=== PATIENT | female | born 1965 | race Caucasian/White ===

== ENCOUNTER 2018-12-02 17:35 | Observation (INO) | payer BC ==
[~2018-12-02] VITALS: Ht 170.2 cm; Wt 92.9 kg
[~2018-12-02 17:35] MED LIST: ALBU90OI61 INH; CIPR500 PO; FLUO10 PO; Gabapentin600 MG PO; HYDR1TAB94 PO; IBUP800 PO; LORA.5 PO; NAPR500 PO; Norco 5-325 Ta1 EACH PO; OMEP40CA12 PO; ONDA4 PO; OXYACE5T PO; Omeprazole20 M1 PO; Prozac20 MG PO; Robaxin-750750 MG PO; Tessalon200 MG PO; Ultram50 MG PO; Zofran4 MG PO
[2018-12-02 18:03] LABS: BASOPHILS ABSOLUTE AUTO 0.06 K/mm3 (0.00-0.23); BASOPHILS PERCENT AUTO 1 % (0-2); EOSINOPHILS ABSOLUTE AUTO 0.12 K/mm3 (0.00-0.68); EOSINOPHILS PERCENT AUTO 2 % (0-6); Hematocrit 38.6 % (33.0-51.0); Hemoglobin 12.5 g/dL (11.5-16.0); IMMATURE GRAN ABSOLUTE AUTO 0.01 K/mm3 (0.00-0.10); IMMATURE GRAN PERCENT AUTO 0 % (0-1); LYMPHOCYTES ABSOLUTE AUTO 3.33 K/mm3 (0.84-5.20); LYMPHOCYTES PERCENT AUTO 48 % (21-46); MONOCYTES ABSOLUTE AUTO 0.48 K/mm3 (0.16-1.47); MONOCYTES PERCENT AUTO 7 % (4-13); Mean Corpuscular HGB 30.1 pg (26.0-34.0); Mean Corpuscular HGB Conc 32.4 g/dL (31.5-36.5); Mean Corpuscular Volume 93 fL (80-100); Mean Platelet Volume 8.8 fL (9.1-12.4); NEUTROPHILS ABSOLUTE AUTO 2.97 K/mm3 (1.96-9.15); NEUTROPHILS PERCENT AUTO 43 % (41-73); Platelet Count 301 K/mm3 (150-400); RDW Coefficient Variation 12.1 % (11.7-14.2); RDW Standard Deviation 41.3 fL (35.1-46.3); Red Blood Cell Count 4.15 M/mm3 (3.80-5.20); White Blood Cell Count 6.97 K/mm3 (4.00-11.30)
[2018-12-02 18:19] LABS: International Normalized Ratio 0.96; Prothrombin Time Results 10.2 Sec (9.7-11.5)
[2018-12-02 18:34] LABS: Alanine Aminotransfer (ALT/SGP 56 U/L (12-78); Albumin, Blood 3.6 g/dL (3.4-5.0); Albumin/Globulin Ratio 0.9 (0.8-1.8); Alk Phos 50 U/L (50-136); Anion Gap 11 mmol/L (6-16); Aspartate Aminotrans (AST/SGOT 92 U/L (12-37); Bilirubin, Total 0.7 mg/dL (0.1-1.0); Blood Urea Nitrogen 11 mg/dL (8-24); Bun/Creatinine Ratio 16.5 (12.0-20.0); CO2, Blood 23 mmol/L (21-32); Calcium, Blood 8.5 mg/dL (8.5-10.1); Chloride, Blood 108 mmol/L (98-108); Creatinine, Blood 0.67 mg/dL (0.40-1.00); Globulin, Blood 3.8 g/dL (2.2-4.0); Glomerular Filtration Rate >60 (60-); Glucose, Blood 128 mg/dL (70-99); Sodium, Blood 142 mmol/L (136-145); Total Protein, Blood 7.4 g/dL (6.4-8.2); Troponin I <0.015 ng/mL (0.000-0.040)
[2018-12-02 18:37] LABS: Source, Urine Clean Catch
[2018-12-02 18:45] LABS: Appearance, Urine Hazy (Clear); Bilirubin, Urine Neg (Neg); Blood, Urine 1+ (Neg); Color, Urine Yellow (P-Yellow); Glucose Qualitative, Urine 1+ (Neg); Ketones, Urine 1+ (Neg); Leukocyte Esterase, Urine Neg (Neg); Nitrite, Urine Neg (Neg); Protein, Urine 4+ (Neg); Urobilinogen, Urine 1+ (Normal); pH, Urine 6.5 (5.0-8.0)
[2018-12-02 19:18] LABS: Amorphous Light (0-Heavy); Bacteria Many /hpf; Squamous Epithelial Cells Mod /hpf (Few); Yeast/Fungi Urine Few /hpf
[2018-12-02 19:31] LABS: U Amphetamine Screen Not Detected; U Barbituate Screen Not Detected; U Benzodiazapine Screen Not Detected; U Buprenorphine Screen Not Detected; U Cannabinoids Screen Not Detected; U Cocaine Screen Not Detected; U Methadone Screen Not Detected; U Methamphetamine Screen Not Detected; U Opiates Screen Not Detected; U Oxycodone Screen Not Detected; U Phencyclidine Screen Not Detected; U Propoxyphene Screen Not Detected
[2018-12-02] MEDS ORDERED: Omeprazole20 M1 PO (20:00)
[2018-12-02 20:17] LABS: Influenza A Negative (NEGATIVE); Influenza B Negative (NEGATIVE)
[2018-12-02 22:23] LABS: Troponin I 0.068 ng/mL (0.000-0.040)
[2018-12-03 06:00] LABS: Hematocrit 36.4 % (33.0-51.0); Hemoglobin 11.9 g/dL (11.5-16.0); Mean Corpuscular HGB 30.4 pg (26.0-34.0); Mean Corpuscular HGB Conc 32.7 g/dL (31.5-36.5); Mean Corpuscular Volume 93 fL (80-100); Mean Platelet Volume 8.9 fL (9.1-12.4); Platelet Count 265 K/mm3 (150-400); RDW Coefficient Variation 12.2 % (11.7-14.2); RDW Standard Deviation 41.6 fL (35.1-46.3); Red Blood Cell Count 3.91 M/mm3 (3.80-5.20); White Blood Cell Count 7.86 K/mm3 (4.00-11.30)
--- NOTE | 2018-12-03 06:16 | NUR ---
SHIFT SUMMARY PT ALERT AND ORIENTED. PT HAS SOME CONFUSION ABOUT SYNCOPAL EPISODE. VS STABLE. PT DENIES ANY CP OR DIZZINESS. NS INF PER ORDERS. PT ABLE TO AMBULATE TO BATHROOM NEEDED WITH SBA. NO ACUTE CHANGES SINCE ADMISSION. WILL CONTINUE TO MONITOR AND REPORT TO ONCOMING RN. CALL LIGHT IN REACH.
[2018-12-03 06:24] LABS: Alanine Aminotransfer (ALT/SGP 44 U/L (12-78); Albumin, Blood 3.4 g/dL (3.4-5.0); Albumin/Globulin Ratio 0.9 (0.8-1.8); Alk Phos 47 U/L (50-136); Anion Gap 5 mmol/L (6-16); Aspartate Aminotrans (AST/SGOT 40 U/L (12-37); Bilirubin, Total 0.4 mg/dL (0.1-1.0); Blood Urea Nitrogen 9 mg/dL (8-24); Bun/Creatinine Ratio 11.6 (12.0-20.0); CO2, Blood 27 mmol/L (21-32); Calcium, Blood 8.8 mg/dL (8.5-10.1); Chloride, Blood 109 mmol/L (98-108); Creatinine, Blood 0.77 mg/dL (0.40-1.00); Globulin, Blood 3.6 g/dL (2.2-4.0); Glomerular Filtration Rate >60 (60-); Glucose, Blood 99 mg/dL (70-99); Potassium, Blood 4.2 mmol/L (3.5-5.5); Sodium, Blood 141 mmol/L (136-145)
[2018-12-03 06:28] LABS: Troponin I 0.03 ng/mL (0.000-0.040)
--- NOTE | 2018-12-03 11:05 | NUR ---
Echocardiogram completed.
[2018-12-03 13:08] LABS: Adenovirus Not Detected (NOT DETECT); Coronavirus 229E Not Detected (NOT DETECT); Coronavirus HKU1 Not Detected (NOT DETECT); Coronavirus NL63 Not Detected (NOT DETECT); Coronavirus OC43 Not Detected (NOT DETECT); Human Metapneumovirus Not Detected (NOT DETECT); Human Rhinovirus/Enterovirus Not Detected (NOT DETECT); Influenza A Not Detected (NOT DETECT); Influenza A/2009-H1 Not Detected (NOT DETECT); Influenza A/H1 Not Detected (NOT DETECT); Influenza A/H3 Not Detected (NOT DETECT)
[2018-12-03 13:09] LABS: Bordetella pertussis Not Detected (NOT DETECT); Chlamydophila pneumoniae Not Detected (NOT DETECT); Influenza B Not Detected (NOT DETECT); Mycoplasma pneumoniae Not Detected (NOT DETECT); Parainfluenza Virus 1 Not Detected (NOT DETECT); Parainfluenza Virus 2 Not Detected (NOT DETECT); Parainfluenza Virus 3 Not Detected (NOT DETECT); Parainfluenza Virus 4 Not Detected (NOT DETECT); Respiratory Syncytial Virus Not Detected (NOT DETECT)
[2018-12-04 04:28] LABS: Albumin, Blood 3.3 g/dL (3.4-5.0); Anion Gap 5 mmol/L (6-16); Blood Urea Nitrogen 8 mg/dL (8-24); Bun/Creatinine Ratio 9.6 (12.0-20.0); CO2, Blood 28 mmol/L (21-32); Calcium, Blood 8.9 mg/dL (8.5-10.1); Chloride, Blood 109 mmol/L (98-108); Creatinine, Blood 0.83 mg/dL (0.40-1.00); Glomerular Filtration Rate >60 (60-); Glucose, Blood 100 mg/dL (70-99); Phosphorus, Blood 3.4 mg/dL (2.5-4.9); Potassium, Blood 4.1 mmol/L (3.5-5.5); Sodium, Blood 142 mmol/L (136-145)
--- NOTE | 2018-12-04 06:25 | NUR ---
DIRECTOR OF EMERGENCY NURSING SUMMARY NO ACUTE CHANGES THIS SHIFT. PT AAOX4 AND COOPERATIVE WITH CARE. STANDBY ASSIST TO BATHROOM DUE TO PT BEING ADMITTED DUE TO SYNCOPAL EPISODE. HOWEVER, PT HAS REPORTED TO DIZZINESS OR PRE SYNCOPAL SYMPTOMS THIS SHIFT. PT WAS UP FOR A SHOWER AT START OF SHIFT. DENIES PAIN, N/V, SOB. VSS, WILL CONTINUE TO MONITOR.
== END 2018-12-04 11:34 | disposition home or self-care (01) ==
LOC: ER 17:35 → PCU 17:36
PROVIDERS: Emergency Medicine; Internal Medicine; ADMIT Internal Medicine
DX: I95.9 Hypotension, unspecified (principal); G93.41 Metabolic encephalopathy; I44.7 Left bundle-branch block, unspecified; E87.6 Hypokalemia; F32.9 Major depressive disorder, single episode, unspecified; K21.9 Gastro-esophageal reflux disease without esophagitis; Z87.442 Personal history of urinary calculi; Z79.899 Other long term (current) drug therapy; Z88.6 Allergy status to analgesic agent; Z88.0 Allergy status to penicillin
CPT/HCPCS: 36415; 70450; 71260; 80053; 80069; 81001; 82140; 82550; 83735; 83880; 84484; 85025; 85027; 85610; 85730; 87086; 87486; 87581; 87633; 87798; 87804; 93005; 93010; 93306; 93880; 96361; 96365; 96366; 96372; 96374; 96374-59; 96375; 96375-59; 99285-25; G0378; J1650; J2001; J2060; J2405; J3480; J7030; J7050; P9612; Q9967

== ENCOUNTER 2019-03-08 06:49 | Day surgery (SDC) | payer BC ==
[~2019-03-08] VITALS: Ht 167.6 cm; Wt 97.7 kg
[~2019-03-08 06:49] MED LIST changes: +ATOR40TA PO; +Aspirin EC81 MG PO; +Robaxin750 MG PO
[2019-03-08] MEDS ORDERED: Toprol Xl25 MG PO (07:46)
--- NOTE | 2019-03-08 13:35 | NUR ---
10cc AIR REMOVED FROM R WRIST TR BAND. -BLEEDING OR SWELLING.
--- NOTE | 2019-03-08 14:34 | NUR ---
PT DRESSED, IV DC'D INTACT, TR BAND REMOVED, SOFT AND NO BLEEDING SEEN. DRESSING PLACED TO R RADIAL SITE W R WRIST SPLINT AND R ARM SLING PLACED. PT PREFERS TO AMB OUT W SISTER DRIVING PT HOME. DC INSTRUCTIONS GIVEN
== END 2019-03-08 14:10 | disposition home or self-care (01) ==
LOC: MHTC 06:49
DX: R94.39 Abnormal result of other cardiovascular function study (principal); Z88.0 Allergy status to penicillin; Z88.6 Allergy status to analgesic agent
CPT/HCPCS: 93458; 99152; 99153; C1769; C1894; J1644; J2250; J3010; J7030; Q9967

== ENCOUNTER → 2022-10-30 | Outpatient (CLI) | payer BC, OTHER ==
[~2022-10-30] MED LIST changes: +Toprol Xl25 MG PO
[2022-10-30 17:37] LABS: Influenza A, PCR NEGATIVE (NEGATIVE); Influenza B, PCR NEGATIVE (NEGATIVE); Resp Syncytial Virus, PCR NEGATIVE (NEGATIVE); SARS-Cov-2 (COVID-19) PCR, MMC NEGATIVE (NEGATIVE)
== END | disposition home or self-care (01) ==
LOC: LAB SHORT 12:40
PROVIDERS: Physician Assistant
DX: R50.9 Fever, unspecified (principal); R05.9 Cough, unspecified
CPT/HCPCS: 0241U